=== PATIENT | female | born 1985 | race African-American/Black ===

== ENCOUNTER 2016-11-19 20:25 | Emergency (ER) | payer SELFPAY ==
[2016-11-19] MEDS ORDERED: ACETAMINOPHEN 325 MG TABLET PO ONE (20:43)
--- NOTE | 2016-11-19 20:46 | ER Document Report ---
ED Medical Screen (RME) - General Chief Complaint: Fever Stated Complaint: BODY CHILLS Mode of Arrival: Ambulatory Information source: Patient Notes: 30 y/o F presents to ED c/o congestion, generalized aches, and intermittent fever over the last 2 days. States feels like her ears are "popping". Denies pain. I have greeted and performed a rapid initial assessment of this patient. A comprehensive ED assessment and evaluation of the patient, analysis of test results and completion of the medical decision making process will be conducted by additional ED providers. TRAVEL OUTSIDE OF THE [place] IN LAST 30 DAYS: No - Related Data Allergies/Adverse Reactions: No Known Allergies Allergy (Unverified 05/09/11 14:56) Past Medical History - Immunizations Hx Diphtheria, Pertussis, Tetanus Vaccination: Yes Physical Exam - Vital signs Vitals: Temp Pulse Resp BP Pulse Ox 103.0 F H 107 H 16 138/89 H 95 11/19/16 20:31 11/19/16 20:31 11/19/16 20:31 11/19/16 20:31 11/19/16 20:31 - General General appearance: Alert In distress: None - Respiratory Respiratory status: No respiratory distress Course - Vital Signs Vital signs: Temp Pulse Resp BP Pulse Ox 103.0 F H 107 H 16 138/89 H 95 11/19/16 20:31 11/19/16 20:31 11/19/16 20:31 11/19/16 20:31 11/19/16 20:31
[2016-11-19] MEDS ORDERED: NORMAL SALINE 1000 ML 1,000 ML IV PRN (22:42)
--- NOTE | 2016-11-19 22:42 | ER Document Report ---
ED Flu Like - General Chief Complaint: Fever Stated Complaint: BODY CHILLS Time seen by provider: 22:39 Mode of Arrival: Ambulatory Information source: Patient TRAVEL OUTSIDE OF THE [place] 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 , she did not have a flu shot this year, she denies any cough, no nausea, vomiting or diarrhea, no dysuria, denies being - Related Data Allergies/Adverse Reactions: No Known Allergies Allergy (Unverified 05/09/11 14:56) Past Medical History - General Information source: Patient - Social History Smoking Status: Never Smoker Family History: Reviewed & Not Pertinent Patient has suicidal ideation: No Patient has homicidal ideation: No Renal/ Medical History: Denies: Hx Peritoneal Dialysis - Immunizations Hx Diphtheria, Pertussis, Tetanus Vaccination: Yes Review of Systems - Review of Systems Constitutional: See HPI EENT: See HPI Cardiovascular: No symptoms reported Respiratory: See HPI Gastrointestinal: No symptoms reported Genitourinary: No symptoms reported Female Genitourinary: No symptoms reported Musculoskeletal: See HPI Skin: No symptoms reported Hematologic/Lymphatic: No symptoms reported Neurological/Psychological: No symptoms reported -: Yes All other systems reviewed and negative Physical Exam - Vital signs Vitals: Temp Pulse Resp BP Pulse Ox 103.0 F H 107 H 16 138/89 H 95 11/19/16 20:31 11/19/16 20:31 11/19/16 20:31 11/19/16 20:31 11/19/16 20:31 Interpretation: Tachycardic, Febrile - General General appearance: Appears well, Alert - HEENT Head: Normocephalic, Atraumatic Eyes: Normal Pupils: PERRL - Respiratory Respiratory status: No respiratory distress Chest status: Nontender Breath sounds: Normal Chest palpation: Normal - Cardiovascular Rhythm: Regular Heart sounds: Normal auscultation Murmur: No - Abdominal Inspection: Normal Distension: No distension Bowel sounds: Normal Tenderness: Nontender Organomegaly: No organomegaly - Back Back: Normal, Nontender - Extremities General upper extremity: Normal inspection, Nontender, Normal color, Normal ROM , Normal temperature General lower extremity: Normal inspection, Nontender, Normal color, Normal ROM , Normal temperature, Normal weight bearing. No: Ralph's sign - Neurological Neuro grossly intact: Yes Cognition: Normal Orientation: AAOx4 [place] Coma Scale Eye Opening: Spontaneous Reyes Coma Scale Verbal: Oriented [place] Coma Scale Motor: Obeys Commands Reyes Coma Scale Total: 15 Speech: Normal Motor strength normal: LUE, RUE, LLE, RLE Sensory: Normal - Psychological Associated symptoms: Normal affect, Normal mood - Skin Skin Temperature: Warm Skin Moisture: Dry Skin Color: Normal Course - Re-evaluation Re-evalutation: 11/19/16 22:41 Patient with positive influenza B test, symptoms are consistent with influenza, we discussed possible treatment with Tamiflu which patient declined at the present time, she was advised for supportive care, will be given a work note and advised to follow-up with a primary care provider or return if symptoms worsen, patient acknowledges understanding and agreement with this plan - Vital Signs Vital signs: Temp Pulse Resp BP Pulse Ox 103.0 F H 107 H 16 138/89 H 95 11/19/16 20:31 11/19/16 20:31 11/19/16 20:31 11/19/16 20:31 11/19/16 20:31 Discharge - Discharge Clinical Impression: Influenza B Condition: Stable Disposition: HOME, SELF-CARE Instructions: Acetaminophen, Fever ([facility]), Influenza ([facility]) 1121-2899, Viral Syndrome ([facility]), Ibuprofen (General) ([facility]) Additional Instructions: Drink plenty of fluids. Tylenol or Motrin as needed for fever. Follow-up with your primary care provider in one to 2 days. Return to the emergency room immediately if symptoms worsen or any additional concerns. Forms: Return to Work
[2016-11-20 00:43] VITALS: BP 134/88
== END 2016-11-20 00:43 | disposition home or self-care (01) ==
LOC: ER 20:25
DX: J11.1 Influenza due to unidentified influenza virus with other respiratory manifestations (principal); M79.1 Myalgia; R05 Cough; R50.9 Fever, unspecified; R00.0 Tachycardia, unspecified
CPT/HCPCS: 99283; 96360; 87804; J7030

== ENCOUNTER → 2019-03-19 | Outpatient (CLI) | payer MEDICAID ==
--- NOTE | 2019-03-19 15:02 | RADIOLOGY REPORT (SQ) ---
EXAM DESCRIPTION: U/S [id number] TRNABD 1GES W/ODOP COMPLETED DATE/TIME: 03/19/2019 2:28 pm REASON FOR STUDY: Z34.81 ENCOUNTER FOR SUPRVSN OF NORMAL , FIRST TRIMESTER Z34.81 ENCOUNTE R FOR SUPRVSN OF NORMAL , FIRST TRIM COMPARISON: None. TECHNIQUE: Transabdominal static and realtime grayscale images acquired of the pelvis. Additional se lected spectral and color Doppler images recorded. All images stored on PACs. bHCG: Not available. CLINICAL DATES: 9 weeks 1 day LIMITATIONS: None. FINDINGS: FETUS: Single Living intrauterine . ULTRASOUND EGA: 9 weeks 5 days. ULTRASOUND SALOME: 10/17/2019. EFW: Not applicable less than 20 weeks. CRL: 2.91 cm. FHR: 175 beats per minute. SURVEY: Too early to assess. AMNIOTIC FLUID: Adequate amount. PLACENTA: Not yet developed due to early gestation. SUBCHORIONIC BLEED: No. SIZE OF BLEED: Not applicable. UTERUS: No masses. No anomalies. CERVICAL LENGTH: 4.8 cm. Closed. RIGHT ADNEXA: Normal ovary with normal vascular flow. No adnexal free fluid. No adnexal masses. LEFT ADNEXA: Ovary not identified due to poor acoustical window. No adnexal free fluid. No adnexal masses. FREE FLUID: None. OTHER: No other significant finding. IMPRESSION: LIVING INTRAUTERINE . EGA 9 WEEKS 5 DAYS. Trimester of : First - 0 to 13 weeks. TECHNICAL DOCUMENTATION: JOB ID: [id number] [employer]- All Rights Reserved Reading location - IP/workstation name: [email or web address]
== END ==
LOC: RAD 13:39
PROVIDERS: ATTEND Midwife
DX: Z34.81 Encounter for supervision of other normal pregnancy, first trimester (principal)
CPT/HCPCS: 76801

== ENCOUNTER 2019-10-02 11:37 | Inpatient (IN) | payer MEDICAID ==
[2019-10-02 12:27] LABS: APPEARANCE,URINE CLEAR; BILIRUBIN,URINE NEGATIVE (NEGATIVE); COLOR,URINE STRAW; GLUCOSE, URINE NEGATIVE (NEGATIVE); KETONES,URINE NEGATIVE (NEGATIVE); LEUKOCYTE ESTERASE,URINE TRACE (NEGATIVE); NITRITE,URINE NEGATIVE (NEGATIVE); PROTEIN,URINE NEGATIVE (NEGATIVE); URINE SPECIFIC GRAVITY 1.005; UROBILINOGEN,URINE NEGATIVE mg/dL (<2.0)
[2019-10-02] MEDS ORDERED: PENICILLIN G-K 5 MILLION UNIT VIAL ONE (12:38)
[2019-10-02] MEDS ORDERED: RINGERS SOLUTION,LACTATED 1,000 ML IV PRN (12:43)
[2019-10-02] MEDS ORDERED: PENICILLIN G POTASSIUM 5,000,000 UNIT in DEXTROSE 5%-WATER 100 ML IV ONE (12:43)
[2019-10-02] MEDS ORDERED: RINGERS SOLUTION,LACTATED 1,000 ML IV ONE (12:43)
[2019-10-02 12:44] LABS: URINE AMPHETAMINES SCREEN NEGATIVE; URINE BARBITURATES SCREEN NEGATIVE; URINE BENZODIAZEPINES SCREEN NEGATIVE; URINE COCAINE SCREEN NEGATIVE; URINE MARIJUANA (THC) SCREEN NEGATIVE; URINE METHADONE SCREEN NEGATIVE; URINE PHENCYCLIDINE SCREEN NEGATIVE
[2019-10-02] MEDS ORDERED: OXYTOCIN 10 UNIT/ML VIAL ONE (12:54)
[2019-10-02] MEDS ORDERED: OXYTOCIN/NORMAL SALINE 20 UNIT/1,000 ML RTUINJ ONE (12:55)
[2019-10-02] MEDS ORDERED: MISOPROSTOL 0.2 MG TABLET ONE (12:55)
[2019-10-02] MEDS ORDERED: LIDOCAINE 1% INJ-PF (10 MG/ML) 30 ML SDV ONE (12:55)
--- NOTE | 2019-10-02 13:29 | Admission Physical ---
Datetime Report Generated by CPN: 10/02/2019 13:28 CURRENT ADMISSION Chief Complaint: Suspected Ruptured Membranes Chief Complaint Other: SROM at 0445 this am-clear Indication for Induction: PROM Admit Impression : Term, Intrauterine Admit Plan: Admit to Unit; Initiate Labor Augmentation Protocol ALLERGIES Medication Allergies: No Medication Allergies: No Known Allergies (05/09/2011) Latex: No Latex Allergies OBSTETRICAL HISTORY : 4 Para: 3 Term: 3 Livin PHYSICAL EXAM General: Normal HEENT: Normal Neurologic: Normal Thyroid: Deferred Heart: Normal Lungs: Normal Breast: Deferred Back: Normal Abdomen: Normal Genitourinary Exam: Deferred Extremities: Normal DTRs: Normal Pelvic Type: Adequate Physical Exam Comments: Proven for 5lbs 10oz Vital Signs: Reviewed; Within Normal Limits MEMBRANES Membranes: Ruptured Amniotic Fluid Color: Clear FETUS A Monitoring: External US FHR- Baseline: 135 Variability: Moderate 6-25bpm Accelerations: 15X15 Decelerations: None FHR Category: Category I Presentation: Vertex Admit Comment: SROM at 0445 this am-clear fluid Positive GBS test-antibiotics infusing Irregular, mild ucs-will delay and limit vaginal exams Anemia records reviewed Plan: Admit, antibx, Pitocin augmentation INFORMED CONSENT Assignment: Rito Alas MD Signature: with User ID: Manju : with User ID: Manju : I personally evaluated and examined the patient in conjunction with the MLP and agree with the assessment, treatment plan and disposition.
[2019-10-02 13:34] LABS: ABSOLUTE LYMPHOCYTES (AUTO) 1.6 10^3/uL (0.5-4.7); ABSOLUTE MONOCYTES (AUTO) 0.5 10^3/uL (0.1-1.4); ABSOLUTE NEUT (AUTO) 2.7 10^3/uL (1.7-8.2); BASOPHILS % (AUTO) 0.3 % (0-2); EOSINOPHILS % (AUTO) 0.3 % (0-6); HEMOGLOBIN 9.3 g/dL (12.0-15.5); LYMPHOCYTES % (AUTO) 32.1 % (13-45); MEAN CORPUSCULAR HEMOGLOBIN 26.3 pg (27.0-33.4); MEAN CORPUSCULAR HGB CONC 33.2 g/dL (32.0-36.0); MEAN CORPUSCULAR VOLUME 79 fl (80-97); MONOCYTES % (AUTO) 11.1 % (3-13); PLATELET COUNT 211 10^3/uL (150-450); RED BLOOD COUNT 3.55 10^6/uL (3.72-5.28); RED CELL DISTRIBUTION WIDTH 15.1 % (11.5-14.0); SEGMENTED NEUTROPHILS % (AUTO) 56.2 % (42-78); TOTAL CELLS COUNTED % (AUTO) 100 %; WHITE BLOOD COUNT 4.9 10^3/uL (4.0-10.5)
[2019-10-02] MEDS ORDERED: OXYTOCIN/NORMAL SALINE 20 UNIT/1,000 ML RTUINJ IV PRN (14:22)
[2019-10-02] MEDS ORDERED: PENICILLIN G POTASSIUM 2,500,000 UNIT in DEXTROSE 5%-WATER 50 ML IV SCH (16:45)
--- NOTE | 2019-10-02 17:54 | Warning Signs in Babies ---
VOD Warning Signs Datetime Report Generated by [facility]: 10/02/2019 17:53 VOD#608 -Warning Signs in Babies: Viewed with Parent(s)/Family (10/02/2019 12:08:Kaitlyn Grant RN)
--- NOTE | 2019-10-02 17:55 | Warning Signs in Babies ---
VOD Warning Signs Datetime Report Generated by [facility]: 10/02/2019 17:54 VOD#608 -Warning Signs in Babies: Viewed with Parent(s)/Family (10/02/2019 17:50:Kaitlyn Grant RN)
[2019-10-02] MEDS ORDERED: IBUPROFEN 800 MG TABLET ONE (19:00)
[2019-10-02] MEDS ORDERED: BENZOCAINE/MENTHOL AEROSOL SPRAY 56 ML TOP PRN (19:11)
[2019-10-02] MEDS ORDERED: ZOLPIDEM TARTRATE 5 MG TABLET PO PRN (19:11)
[2019-10-02] MEDS ORDERED: ACETAMINOPHEN WITH CODEINE #3 TABLET PO PRN (19:11)
[2019-10-02] MEDS ORDERED: DIPH/PERTUSS(ACELL)/TETANUS VAC/PF 0.5 ML SYR (>=10YO) IM PRN (19:11)
[2019-10-02] MEDS ORDERED: DIBUCAINE 1% OINTMENT 56 GM TP PRN (19:11)
[2019-10-02] MEDS ORDERED: MEASLES,MUMPS&RUBELLA VACC/PF 0.5 ML VIAL SUBCUT PRN (19:11)
[2019-10-02] MEDS ORDERED: OXYTOCIN/NORMAL SALINE 1,000 ML IV PRN (19:11)
--- NOTE | 2019-10-02 19:29 | Delivery Summary ---
Del Sum A-C Datetime Report Generated by CPN: 10/02/2019 19:29 DELIVERY PERSONNEL DELIVERY PERSONNEL: [id number] Delivery Doctor:: Estee Hooper CNM Nurse Sampler And Test Preparer Certified:: Estee Hooper CNM Labor and Delivery Nurse:: Kaitlyn Grant RNsoftware computer specialist Nurse:: VALERI Shane Retail Account Specialist/ORACLE TECHNICAL ARCHITECT: Stefania Flaherty Additional Personnel: : VALERI Isbell MATERNAL INFORMATION Delivery Anesthesia: None Medications After Delivery: Pitocin Bolus-Please Comment Meds After Delivery Comment: Pitocin 20 units in 1000 ml nss open for bolus after delivery of placenta Estimated Blood Loss (ml): 125 Delivery QBL: 125 Maternal Complications: None Provider Comments: of live male infant at 1711. Spontaneous respirations and cry. Apgars 9-9. 3 vessel cord. Cord clamped x2, after 2 min delay, then cut by fob. Placenta, membranes, and cord expelled at 1717, Shankar, apparently intact. Perineum inspected, superficial perineal abrasion, no repair. Patient tolerated procedure well. LABOR SUMMARY EDC: 10/21/2019 00:00 No. Babies in Womb: 1 Attempted: No Labor Anesthesia: None LABOR INFORMATION Reason for Induction: Not Applicable Onset of Labor: 10/02/2019 16:11 Complete Dilatation: 10/02/2019 16:56 Oxytocin: Augmentation Group B Beta Strep: Positive Antibiotics # of Doses: 1 Antibiotics Time of Last Dose: 7668 Name of Antibiotic Given: Penicillin Steroids Given: None Reason Steroids Not Administered: Not Applicable MEMBRANES Membranes Rupture Method: Spontaneous Rupture of Membranes: 10/02/2019 04:45 Length of Rupture (hr): 12.43 Amniotic Fluid Color: Clear Amniotic Fluid Amount: Moderate Amniotic Fluid Odor: Normal STAGES OF LABOR Stage 1 hr: 0 Stage 1 min: 45 Stage 2 hr: 0 Stage 2 min: 15 Stage 3 hr: 0 Stage 3 min: 6 Total Time in Labor hr: 1 Total Time in Labor min: 6 VAGINAL DELIVERY Episiotomy: None Laceration #1: Perineal Laceration Extension #1: N/A Other Laceration: supraficial perineal laceration without repair Laceration Repair: Not Applicable Sponge Count Correct: N/A Sharps Count Correct: Yes CSECTION DELIVERY Primary Indication: N/A Secondary Indication: N/A CSection Incidence: N/A Labor: N/A Elective: N/A CSection Incision: N/A BABY A INFORMATION Delivery Date/Time: 10/02/2019 17:11 Method of Delivery: Vaginal Born in Route : No : N/A Forceps: N/A Vacuum Extraction: N/A Shoulder Dystocia : No PRESENTATION/POSITION BABY A Presentation: Cephalic Cephalic Presentation: Vertex Vertex Position: Right Occipital Anterior Breech Presentation: N/A PLACENTA INFORMATION BABY A Placenta Delivery Time : 10/02/2019 17:17 Placenta Method of Delivery: Spontaneous Placenta Status: Delivered SCORES BABY A Heart Rate 1 min: >100 bpm Resp Effort 1 min: Good Cry Reflex Irritability 1 min: Cough or Sneeze or Pulls Away Muscle Tone 1 min: Active Motion Color 1 min: Body Cando, Extremities Blue Resuscitation Effort 1 min: Tactile Stimulation SCORE 1 MIN: 9 Heart Rate 5 min: >100 bpm Resp Effort 5 min: Good Cry Reflex Irritability 5 min: Cough or Sneeze or Pulls Away Muscle Tone 5 min: Active Motion Color 5 min: Body Cando, Extremities Blue Resuscitation Effort 5 min: N/A SCORE 5 MIN: 9 Resuscitation Effort 10 min: N/A INFORMATION BABY A Gestational Age at Delivery: 37.2 Gestational Status: Early Term- 37- 38.6 Weeks Infant Outcome : Liveborn Infant Condition : Stable Infant Sex: Male IDENTIFICATION BABY A Infant Verification Date/Time: 10/02/2019 17:24 ID Band Number: [id number] Mother's Name Verified: Yes RN Verifying : Kiah Pelletier [facility] Additional Verifying Personnel: Geraldine Phillips RN WEIGHT/LENGTH BABY A Infant Birthweight (gm): 2746 Weight (lb): 6 Infant Weight (oz): 1 Infant Length (in): 19.00 Infant Length (cm): 48.26 CORD INFORMATION BABY A No. Cord Vessels: 3 Nuchal Cord : N/A Cord Blood Taken: Yes-For Storage (Mom's Blood type +) Infant Suction: None ASSESSMENT BABY A Complications: Multiple Variable Decels Physical Findings at Delivery: Within Normal Limits Respirations: Appears Normal Skin to Skin: Yes Dry Cleaning Checker/ALS Called : No Infant Care By: Awa Maddox RN-C Transferred To: Remains with Mother BABY B INFORMATION : N/A SIGNATURES Assignment: Rito Alas MD Signature: with User ID: Manju : with User ID: Manju : I personally evaluated and examined the patient in conjunction with the MLP and agree with the assessment, treatment plan and disposition.
[2019-10-02] MEDS: ACETAMINOPHEN WITH CODEINE #3 TABLET PO PRN (20:43)
[2019-10-03] MEDS: IBUPROFEN 800 MG TABLET PO SCH ×3 (01:51→18:19)
[2019-10-03] MEDS: ACETAMINOPHEN WITH CODEINE #3 TABLET PO PRN (01:51)
[2019-10-03 06:32] LABS: HEMATOCRIT 28.3 % (36.0-47.0); HEMOGLOBIN 9.3 g/dL (12.0-15.5); MEAN CORPUSCULAR HGB CONC 32.8 g/dL (32.0-36.0); MEAN CORPUSCULAR VOLUME 79 fl (80-97); PLATELET COUNT 222 10^3/uL (150-450); RED BLOOD COUNT 3.57 10^6/uL (3.72-5.28); RED CELL DISTRIBUTION WIDTH 15.2 % (11.5-14.0); WHITE BLOOD COUNT 8.1 10^3/uL (4.0-10.5)
--- NOTE | 2019-10-03 10:34 | PDOC PROGRESS REPORT ---
Subjective-OB Progress Note for:: 10/03/19 Subjective: Pt doing well, reports light bleeding, reg diet and voiding without difficulty. No concerns. Physical Exam (OB) Vital Signs: Temp Pulse Resp BP Pulse Ox 98.1 F 84 16 127/74 H 100 10/03/19 08:12 10/03/19 08:12 10/03/19 08:12 10/03/19 08:12 10/03/19 08:12 Intake & Output 10/02/19 10/03/19 10/04/19 06:59 06:59 06:59 Intake Total 350 Balance 350 Weight 70.7 kg - Lochia Lochia Amount: Small 10-25 ml Lochia Color: Rubra/Red - Abdomen Description: Tender, Soft, Round Hernia Present: No Fundal Description: Firm, Midline Fundal Height: u/u - u/2 Objective-Diagnostic Laboratory: 10/03/19 06:20 10/02/19 10/02/19 10/02/19 11:58 13:15 13:15 WBC 4.9 RBC 3.55 L Hgb 9.3 L Hct 28.0 L MCV 79 L MCH 26.3 L MCHC 33.2 RDW 15.1 H Plt Count 211 Seg Neutrophils % 56.2 Urine Color STRAW Urine Appearance CLEAR Urine pH 6.0 Ur Specific [place] 1.005 Urine Protein NEGATIVE Urine Glucose (UA) NEGATIVE Urine Ketones NEGATIVE Urine Blood NEGATIVE Urine Nitrite NEGATIVE Ur Leukocyte Esterase TRACE H Blood Type A POSITIVE Antibody Screen NEGATIVE 10/03/19 06:20 WBC 8.1 RBC 3.57 L Hgb 9.3 L Hct 28.3 L MCV 79 L MCH 26.0 L MCHC 32.8 RDW 15.2 H Plt Count 222 Seg Neutrophils % Urine Color Urine Appearance Urine pH Ur Specific [place] Urine Protein Urine Glucose (UA) Urine Ketones Urine Blood Urine Nitrite Ur Leukocyte Esterase Blood Type Antibody Screen Assessment and Plan(PN) - Assessment and Plan (1) Anemia Qualifiers: Anemia type: iron deficiency Iron deficiency anemia type: unspecified iron deficiency Qualified Code(s): D50.9 - Iron deficiency anemia, unspecified Is this a current diagnosis for this admission?: Yes (2) Delivery normal Is this a current diagnosis for this admission?: Yes - Time Spent with Patient Time with patient: Less than 15 minutes Medications reviewed and adjusted accordingly: Yes - Disposition Anticipated Discharge: Home Within: within 24 hours
[2019-10-03] MEDS: PRENATAL VITAMIN W DHA CAPSULE PO SCH (10:43)
[2019-10-03] MEDS: SENNOSIDES/DOCUSATE 8.6-50 MG 1 EACH TABLET PO SCH (10:43)
[2019-10-03] MEDS: DOCUSATE SODIUM 100 MG CAPSULE PO SCH ×2 (10:43→18:20)
[2019-10-03] MEDS: FERROUS SULFATE 325 MG TABLET PO SCH ×2 (10:44→18:20)
[2019-10-04] MEDS: IBUPROFEN 800 MG TABLET PO SCH ×2 (03:06→09:52)
[2019-10-04 07:53] VITALS: BP 126/75
[2019-10-04] MEDS: SENNOSIDES/DOCUSATE 8.6-50 MG 1 EACH TABLET PO SCH (09:53)
[2019-10-04] MEDS: PRENATAL VITAMIN W DHA CAPSULE PO SCH (09:53)
[2019-10-04] MEDS: FERROUS SULFATE 325 MG TABLET PO SCH (09:53)
[2019-10-04] MEDS: DOCUSATE SODIUM 100 MG CAPSULE PO SCH (09:53)
--- NOTE | 2019-10-04 11:41 | PDOC DISCHARGE SUMMARY ---
Impression - Admit/DC Date/PCP Admission Date/Primary Care Provider: 10/02/19 12:44 SHAUN NICHOLE CNM Discharge Date: 10/04/19 - Discharge Diagnosis (1) Anemia Is this a current diagnosis for this admission?: Yes (2) Delivery normal Is this a current diagnosis for this admission?: Yes - Additional Information Resuscitation Status: Full Code Discharge Diet: Regular Discharge Activity: Balance Activity w/Rest, No Lifting Over 10 Pounds, No Lifting/Push/Pulling, Pelvic Rest Referrals: SHAUN NICHOLE CNM [Primary Care Provider] - Prescriptions: Ibuprofen [Motrin 800 mg Tablet] 800 mg PO Q8HP PRN #60 tablet PRN Reason: Home Medications: Pnv W-O Ca No5/Fe Fumarate/FA [-U Multiple Vitamin Capsule] 1 cap PO DAILY 03/21/13 Ibuprofen [Motrin 800 mg Tablet] 800 mg PO Q8HP PRN #60 tablet 10/04/19 Results Laboratory Results: WBC 8.1 10^3/uL (4.0-10.5) 10/03/19 06:20 RBC 3.57 10^6/uL (3.72-5.28) L 10/03/19 06:20 Hgb 9.3 g/dL (12.0-15.5) L 10/03/19 06:20 Hct 28.3 % (36.0-47.0) L 10/03/19 06:20 MCV 79 fl (80-97) L 10/03/19 06:20 MCH 26.0 pg (27.0-33.4) L 10/03/19 06:20 MCHC 32.8 g/dL (32.0-36.0) 10/03/19 06:20 RDW 15.2 % (11.5-14.0) H 10/03/19 06:20 Plt Count 222 10^3/uL (150-450) 10/03/19 06:20 Lymph % (Auto) 32.1 % (13-45) 10/02/19 13:15 [place] % (Auto) 11.1 % (3-13) 10/02/19 13:15 Eos % (Auto) 0.3 % (0-6) 10/02/19 13:15 Baso % (Auto) 0.3 % (0-2) 10/02/19 13:15 Absolute Neuts (auto) 2.7 10^3/uL (1.7-8.2) 10/02/19 13:15 Absolute Lymphs (auto) 1.6 10^3/uL (0.5-4.7) 10/02/19 13:15 Absolute Monos (auto) 0.5 10^3/uL (0.1-1.4) 10/02/19 13:15 Absolute Eos (auto) 0.0 10^3/uL (0.0-0.6) 10/02/19 13:15 Absolute Basos (auto) 0.0 10^3/uL (0.0-0.2) 10/02/19 13:15 Seg Neutrophils % 56.2 % (42-78) 10/02/19 13:15 Urine Color STRAW 10/02/19 11:58 Urine Appearance CLEAR 10/02/19 11:58 Urine pH 6.0 (5.0-9.0) 10/02/19 11:58 Ur Specific [place] 1.005 10/02/19 11:58 Urine Protein NEGATIVE mg/dL (NEGATIVE) 10/02/19 11:58 Urine Glucose (UA) NEGATIVE mg/dL (NEGATIVE) 10/02/19 11:58 Urine Ketones NEGATIVE mg/dL (NEGATIVE) 10/02/19 11:58 Urine Blood NEGATIVE (NEGATIVE) 10/02/19 11:58 Urine Nitrite NEGATIVE (NEGATIVE) 10/02/19 11:58 Urine Bilirubin NEGATIVE (NEGATIVE) 10/02/19 11:58 Urine Urobilinogen NEGATIVE mg/dL (<2.0) 10/02/19 11:58 Ur Leukocyte Esterase TRACE (NEGATIVE) H 10/02/19 11:58 Urine Ascorbic Acid NEGATIVE (NEGATIVE) 10/02/19 11:58 Membranes Rupture POSITIVE (NEGATIVE) H 10/02/19 11:58 Urine Opiates Screen NEGATIVE 10/02/19 11:58 Urine Methadone Screen NEGATIVE 10/02/19 11:58 Ur Barbiturates Screen NEGATIVE 10/02/19 11:58 Ur Phencyclidine Scrn NEGATIVE 10/02/19 11:58 Ur Amphetamines Screen NEGATIVE 10/02/19 11:58 U Benzodiazepines Scrn NEGATIVE 10/02/19 11:58 Urine Cocaine Screen NEGATIVE 10/02/19 11:58 U Marijuana (THC) Screen NEGATIVE 10/02/19 11:58 RPR NONREACTIVE (NONREACTIVE) 10/02/19 13:15 Blood Type A POSITIVE 10/02/19 13:15 Antibody Screen NEGATIVE 10/02/19 13:15
[2019-10-04] MEDS ORDERED: MEDROXYPROGESTERONE ACET INJ 150 MG/1 ML VIAL IM ONE (12:00)
== END 2019-10-04 14:20 | disposition home or self-care (01) | DRG 807 ==
LOC: LC 11:37 → LR 12:44 → 2S 19:59
PROVIDERS: ADMIT Obstetrics & Gynecology; ATTEND Obstetrics & Gynecology
PROC: 10E0XZZ Delivery of Products of Conception, External Approach (ICD-10-PCS; principal; 2019-10-02)
DX: O99.824 Streptococcus B carrier state complicating childbirth (principal); Z37.0 Single live birth; O36.8330 Maternal care for abnormalities of the fetal heart rate or rhythm, third trimester, not applicable or unspecified; O70.9 Perineal laceration during delivery, unspecified; Z3A.37 37 weeks gestation of pregnancy; O99.013 Anemia complicating pregnancy, third trimester; D50.9 Iron deficiency anemia, unspecified
CPT/HCPCS: 36415; 80307; 81005; 84112; 85025; 85027; 86592; 86850; 86900; 86901; 88307; J1050; J2540; J2590; J3490